=== PATIENT | male | born 1955 | race Hispanic/Latino ===

== ENCOUNTER 2020-08-31 08:04 | Inpatient (IN) | payer MEDICARE, OTHER ==
[~2020-08-31] VITALS: Ht 175.3 cm; Wt 108.9 kg
[~2020-08-31 08:04] MED LIST: AMLODIPINE BESYL5 MG PO; CYMBALTA20 MG PO; GLIMEPIRIDE2 MG PO; METFORMIN HCL500 MG PO
[2020-08-31] MEDS ORDERED: CEFEPIME 1 GM in SODIUM CHLORIDE 0.9% 50ML 50 ML IV ONE (08:30)
[2020-08-31 08:50] LABS: BASOPHILS # (AUTO) 0.1 (0.0-0.1); BASOPHILS % 0.6 % (0.0-1.0); EOSINOPHILS # (AUTO) 0.1 (0.0-0.4); HEMATOCRIT 43.8 % (38.2-49.6); HEMOGLOBIN 14.1 g/dL (14.0-18.0); LYMPHOCYTES # (AUTO) 0.8 (1.0-3.2); LYMPHOCYTES % 5.6 % (18.0-39.1); MEAN CORPUSCULAR HEMOGLOBIN 29.4 pg (28-32); MEAN CORPUSCULAR HGB CONC 32.2 g/dL (31-35); MEAN CORPUSCULAR VOLUME 91.3 fL (81-99); MONOCYTES # (AUTO) 0.9 (0.2-0.8); MONOCYTES % 6.8 % (4.4-11.3); NEUTROPHILS # (AUTO) 11.5 (2.1-6.9); PLATELET COUNT 315 x10e3/uL (140-360); RED CELL DISTRIBUTION WIDTH 14.1 % (11.7-14.4)
[2020-08-31 09:06] LABS: ABG PCO2 38 mmHg (35-45); ABG PH 7.46 (7.35-7.45)
[2020-08-31 09:07] LABS: ABG HCO3 27 mmol/L (22-26); ABG PO2 417 mmHg (80-105); ABG TCO2 28
[2020-08-31 09:16] LABS: ALBUMIN 3.1 g/dL (3.5-5.0); ALBUMIN/GLOBULIN RATIO 0.8 (0.8-2.0); ANION GAP 17.4 mmol/L (8-16); CALCIUM 8.9 mg/dL (8.4-10.2); CREATININE, SERUM 0.95 mg/dL (0.72-1.25); POTASSIUM 4.4 mmol/L (3.5-5.1)
[2020-08-31 09:24] LABS: CREATINE KINASE MB 0.6 ng/mL (0-5.0)
[2020-08-31] MEDS ORDERED: INSULIN REGULAR, HUMAN 100 UNIT/1 ML IV ONE (10:00)
[2020-08-31] MEDS ORDERED: IOPAMIDOL 370 MG/ML 200 ML INFUS..BTL INJ ONE (10:33)
[2020-08-31] MEDS ORDERED: SODIUM CHLORIDE 0.9% 50ML 50 ML ONE (10:33)
[2020-09-01] VITALS (10 sets, daily range): BP systolic 104–128; BP diastolic 66–77
[2020-09-01 06:26] LABS: BASOPHILS # (AUTO) 0.1 (0.0-0.1); BASOPHILS % 0.5 % (0.0-1.0); EOSINOPHILS # (AUTO) 0.3 (0.0-0.4); EOSINOPHILS % 2.8 % (0.0-6.0); HEMATOCRIT 39.3 % (38.2-49.6); HEMOGLOBIN 12.6 g/dL (14.0-18.0); LYMPHOCYTES # (AUTO) 1.3 (1.0-3.2); LYMPHOCYTES % 11.8 % (18.0-39.1); MEAN CORPUSCULAR HEMOGLOBIN 29.6 pg (28-32); MEAN CORPUSCULAR HGB CONC 32.1 g/dL (31-35); MEAN CORPUSCULAR VOLUME 92.3 fL (81-99); MONOCYTES % 8.8 % (4.4-11.3); NEUTROPHILS # (AUTO) 8.3 (2.1-6.9); NEUTROPHILS % 74.8 % (38.7-80.0); PLATELET COUNT 289 x10e3/uL (140-360); RED BLOOD COUNT 4.26 x10e6/uL (4.3-5.7); RED CELL DISTRIBUTION WIDTH 14.1 % (11.7-14.4)
[2020-09-01 07:04] LABS: ALBUMIN 2.5 g/dL (3.5-5.0); ALBUMIN/GLOBULIN RATIO 0.7 (0.8-2.0); CALCIUM 8.4 mg/dL (8.4-10.2); CREATININE, SERUM 0.73 mg/dL (0.72-1.25)
[2020-09-01] MEDS: DULOXETINE HCL 20 MG DELAYED RELEASE PO SCH (08:43)
[2020-09-01] MEDS: AMLODIPINE BESYLATE 5 MG TAB PO SCH (08:43)
[2020-09-01] MEDS: GLIMEPIRIDE 2 MG TAB PO SCH ×2 (08:44→16:00)
[2020-09-01] MEDS: FUROSEMIDE INJ 10 MG/ML 4 ML VIAL IV SCH ×2 (08:45→16:05)
[2020-09-01] MEDS ORDERED: METFORMIN HCL 500 MG TAB PO SCH (09:00)
[2020-09-01] MEDS ORDERED: FUROSEMIDE INJ 10 MG/ML 4 ML VIAL IV SCH (09:00)
[2020-09-01] MEDS ORDERED: DEXTROSE 50% SYRINGE 50 ML IV PRN (11:45)
[2020-09-01] MEDS ORDERED: DOXYCYCLINE HYCLATE TABLET 100 MG TAB PO SCH (11:45)
[2020-09-01] MEDS ORDERED: COVID-19 VACC, MRNA(PFIZER)/PF 30 MCG/0.3 ML VIAL IM ONE (11:45)
[2020-09-01] MEDS: CEFTRIAXONE 1 GM in SODIUM CHLORIDE 0.9% 50ML 50 ML IV SCH (13:12)
[2020-09-01] MEDS ORDERED: SODIUM CHLORIDE 0.9% 250ML 250 ML ONE (13:21)
[2020-09-01] MEDS: ALBUTEROL SULF 0.083% NEB SOLN 3 ML NEB NEB SCH ×2 (13:30→19:20)
[2020-09-01] MEDS ORDERED: COVID-19 VACC, MRNA(MODERNA)/PF 100 MCG/0.5 ML VIAL IM PRN (15:00)
[2020-09-01] MEDS: INSULIN LISPRO 100 UNIT/1 ML 3ML VIAL SQ SCH ×3 (16:05→20:32)
[2020-09-01] MEDS: CLINDAMYCIN PHOS 900MG/ 50ML 50 ML IV SCH ×2 (16:08→20:00)
[2020-09-01] MEDS: HEPARIN SOD (PORCINE) 5,000 UNIT/ML VIAL SC SCH (20:31)
[2020-09-02] VITALS (8 sets, daily range): BP systolic 101–116; BP diastolic 62–74
[2020-09-02] MEDS: CLINDAMYCIN PHOS 900MG/ 50ML 50 ML IV SCH ×4 (01:08→20:00)
[2020-09-02] MEDS: ALBUTEROL SULF 0.083% NEB SOLN 3 ML NEB NEB SCH ×4 (01:25→19:10)
[2020-09-02] MEDS: GLIMEPIRIDE 2 MG TAB PO SCH ×2 (08:04→16:43)
[2020-09-02] MEDS: DULOXETINE HCL 20 MG DELAYED RELEASE PO SCH (08:04)
[2020-09-02] MEDS: METFORMIN HCL 500 MG TAB PO SCH ×2 (08:05→16:43)
[2020-09-02] MEDS: AMLODIPINE BESYLATE 5 MG TAB PO SCH (08:05)
[2020-09-02] MEDS: HEPARIN SOD (PORCINE) 5,000 UNIT/ML VIAL SC SCH ×2 (08:09→20:35)
[2020-09-02] MEDS: FUROSEMIDE INJ 10 MG/ML 4 ML VIAL IV SCH ×2 (08:09→16:47)
[2020-09-02] MEDS: INSULIN LISPRO 100 UNIT/1 ML 3ML VIAL SQ SCH ×5 (08:09→20:51)
[2020-09-02] MEDS: CEFTRIAXONE 1 GM in SODIUM CHLORIDE 0.9% 50ML 50 ML IV SCH (09:55)
[2020-09-03] VITALS (9 sets, daily range): BP systolic 98–117; BP diastolic 51–76
[2020-09-03] MEDS: ALBUTEROL SULF 0.083% NEB SOLN 3 ML NEB NEB SCH ×4 (00:40→20:03)
[2020-09-03] MEDS: CLINDAMYCIN PHOS 900MG/ 50ML 50 ML IV SCH ×4 (01:20→19:35)
[2020-09-03 05:39] LABS: BASOPHILS # (AUTO) 0.1 (0.0-0.1); BASOPHILS % 0.6 % (0.0-1.0); EOSINOPHILS # (AUTO) 0.4 (0.0-0.4); EOSINOPHILS % 4.3 % (0.0-6.0); HEMOGLOBIN 12.7 g/dL (14.0-18.0); LYMPHOCYTES # (AUTO) 1.5 (1.0-3.2); LYMPHOCYTES % 16.5 % (18.0-39.1); MEAN CORPUSCULAR HEMOGLOBIN 29.1 pg (28-32); MEAN CORPUSCULAR HGB CONC 31.8 g/dL (31-35); MEAN CORPUSCULAR VOLUME 91.7 fL (81-99); MONOCYTES % 10.8 % (4.4-11.3); NEUTROPHILS % 66.8 % (38.7-80.0); PLATELET COUNT 329 x10e3/uL (140-360); RED BLOOD COUNT 4.36 x10e6/uL (4.3-5.7); RED CELL DISTRIBUTION WIDTH 13.8 % (11.7-14.4)
[2020-09-03 06:08] LABS: ALBUMIN 2.6 g/dL (3.5-5.0); ALBUMIN/GLOBULIN RATIO 0.7 (0.8-2.0); ANION GAP 14.3 mmol/L (8-16); CALCIUM 8.7 mg/dL (8.4-10.2); CREATININE, SERUM 0.65 mg/dL (0.72-1.25); POTASSIUM 3.3 mmol/L (3.5-5.1)
[2020-09-03] MEDS: INSULIN LISPRO 100 UNIT/1 ML 3ML VIAL SQ SCH ×3 (07:30→16:30)
[2020-09-03] MEDS: METFORMIN HCL 500 MG TAB PO SCH ×2 (08:00→17:13)
[2020-09-03] MEDS: FUROSEMIDE INJ 10 MG/ML 4 ML VIAL IV SCH ×2 (09:00→17:13)
[2020-09-03] MEDS: AMLODIPINE BESYLATE 5 MG TAB PO SCH (09:00)
[2020-09-03] MEDS: GLIMEPIRIDE 2 MG TAB PO SCH ×2 (09:00→17:13)
[2020-09-03] MEDS: CEFTRIAXONE 1 GM in SODIUM CHLORIDE 0.9% 50ML 50 ML IV SCH (09:00)
[2020-09-03] MEDS: HEPARIN SOD (PORCINE) 5,000 UNIT/ML VIAL SC SCH ×2 (09:00→20:52)
[2020-09-03] MEDS: DULOXETINE HCL 20 MG DELAYED RELEASE PO SCH (09:00)
[2020-09-03] MEDS ORDERED: LIDOCAINE VISC 2% SOLN 15 ML UDC ONE (22:49)
[2020-09-04] VITALS (7 sets, daily range): BP systolic 108–121; BP diastolic 64–77
[2020-09-04] MEDS: ALBUTEROL SULF 0.083% NEB SOLN 3 ML NEB NEB SCH ×4 (00:55→19:35)
[2020-09-04] MEDS: CLINDAMYCIN PHOS 900MG/ 50ML 50 ML IV SCH ×4 (01:24→20:00)
[2020-09-04] MEDS: INSULIN LISPRO 100 UNIT/1 ML 3ML VIAL SQ SCH ×4 (08:21→21:00)
[2020-09-04] MEDS: METFORMIN HCL 500 MG TAB PO SCH ×2 (08:21→16:20)
[2020-09-04] MEDS: AMLODIPINE BESYLATE 5 MG TAB PO SCH (08:22)
[2020-09-04] MEDS: FUROSEMIDE INJ 10 MG/ML 4 ML VIAL IV SCH ×2 (08:22→16:19)
[2020-09-04] MEDS: GLIMEPIRIDE 2 MG TAB PO SCH ×2 (08:22→16:20)
[2020-09-04] MEDS: DULOXETINE HCL 20 MG DELAYED RELEASE PO SCH (08:22)
[2020-09-04] MEDS: HEPARIN SOD (PORCINE) 5,000 UNIT/ML VIAL SC SCH ×2 (08:22→20:19)
[2020-09-04] MEDS: CEFTRIAXONE 1 GM in SODIUM CHLORIDE 0.9% 50ML 50 ML IV SCH (08:22)
[2020-09-05] VITALS (8 sets, daily range): BP systolic 97–132; BP diastolic 66–90
[2020-09-05] MEDS: ALBUTEROL SULF 0.083% NEB SOLN 3 ML NEB NEB SCH ×4 (00:05→19:55)
[2020-09-05] MEDS: CLINDAMYCIN PHOS 900MG/ 50ML 50 ML IV SCH ×2 (02:00→08:56)
[2020-09-05] MEDS: METFORMIN HCL 500 MG TAB PO SCH ×2 (08:53→16:35)
[2020-09-05] MEDS: GLIMEPIRIDE 2 MG TAB PO SCH ×2 (08:53→16:35)
[2020-09-05] MEDS: DULOXETINE HCL 20 MG DELAYED RELEASE PO SCH (08:54)
[2020-09-05] MEDS: AMLODIPINE BESYLATE 5 MG TAB PO SCH (08:54)
[2020-09-05] MEDS: HEPARIN SOD (PORCINE) 5,000 UNIT/ML VIAL SC SCH ×2 (08:56→21:28)
[2020-09-05] MEDS: FUROSEMIDE INJ 10 MG/ML 4 ML VIAL IV SCH ×2 (08:56→16:38)
[2020-09-05] MEDS: INSULIN LISPRO 100 UNIT/1 ML 3ML VIAL SQ SCH ×4 (08:56→21:29)
[2020-09-05] MEDS: CEFTRIAXONE 1 GM in SODIUM CHLORIDE 0.9% 50ML 50 ML IV SCH (10:35)
[2020-09-05] MEDS: DOXYCYCLINE HYCLATE TABLET 100 MG TAB PO SCH ×2 (11:51→21:26)
[2020-09-06] VITALS: BP 106/58
[2020-09-06] MEDS: ALBUTEROL SULF 0.083% NEB SOLN 3 ML NEB NEB SCH ×2 (01:05→07:00)
[2020-09-06 04:30] VITALS: BP 116/78
[2020-09-06 04:48] LABS: BASOPHILS # (AUTO) 0.1 (0.0-0.1); BASOPHILS % 0.6 % (0.0-1.0); EOSINOPHILS # (AUTO) 0.5 (0.0-0.4); EOSINOPHILS % 5.7 % (0.0-6.0); HEMOGLOBIN 12.3 g/dL (14.0-18.0); LYMPHOCYTES # (AUTO) 1.6 (1.0-3.2); LYMPHOCYTES % 18.6 % (18.0-39.1); MEAN CORPUSCULAR HEMOGLOBIN 29.6 pg (28-32); MEAN CORPUSCULAR HGB CONC 32.4 g/dL (31-35); MEAN CORPUSCULAR VOLUME 91.3 fL (81-99); MONOCYTES # (AUTO) 0.9 (0.2-0.8); MONOCYTES % 10.6 % (4.4-11.3); NEUTROPHILS # (AUTO) 5.5 (2.1-6.9); NEUTROPHILS % 63.6 % (38.7-80.0); PLATELET COUNT 323 x10e3/uL (140-360); RED BLOOD COUNT 4.16 x10e6/uL (4.3-5.7); RED CELL DISTRIBUTION WIDTH 13.3 % (11.7-14.4)
[2020-09-06 05:14] LABS: ANION GAP 15.1 mmol/L (8-16); CALCIUM 8.5 mg/dL (8.4-10.2); CREATININE, SERUM 0.67 mg/dL (0.72-1.25); POTASSIUM 3.1 mmol/L (3.5-5.1)
[2020-09-06] MEDS ORDERED: POTASSIUM CHLORIDE 20 MEQ TAB CR PO ONE (07:45)
[2020-09-06 08:00] VITALS: BP 136/80
[2020-09-06] MEDS: GLIMEPIRIDE 2 MG TAB PO SCH (08:07)
[2020-09-06] MEDS: METFORMIN HCL 500 MG TAB PO SCH (08:07)
[2020-09-06] MEDS: DULOXETINE HCL 20 MG DELAYED RELEASE PO SCH (08:08)
[2020-09-06] MEDS: DOXYCYCLINE HYCLATE TABLET 100 MG TAB PO SCH (08:08)
[2020-09-06] MEDS: AMLODIPINE BESYLATE 5 MG TAB PO SCH (08:08)
[2020-09-06] MEDS: HEPARIN SOD (PORCINE) 5,000 UNIT/ML VIAL SC SCH (08:11)
[2020-09-06] MEDS: FUROSEMIDE INJ 10 MG/ML 4 ML VIAL IV SCH (08:11)
[2020-09-06] MEDS: CEFTRIAXONE 1 GM in SODIUM CHLORIDE 0.9% 50ML 50 ML IV SCH (08:11)
[2020-09-06] MEDS: INSULIN LISPRO 100 UNIT/1 ML 3ML VIAL SQ SCH (08:11)
[2020-09-06 08:17] VITALS: BP 136/80
[2020-09-06] MEDS ORDERED: VIBRAMYCIN100 MG PO (10:35)
== END 2020-09-06 11:07 | disposition home or self-care (01) | DRG 193 ==
LOC: ER 08:12 → ERHOLD 12:39 → MED/SURG2 09-01 04:28 → OBSVTOIN 09-01 14:19
PROVIDERS: ADMIT Internal Medicine; ATTEND Internal Medicine
DX: J18.9 Pneumonia, unspecified organism (principal); J96.01 Acute respiratory failure with hypoxia; I50.33 Acute on chronic diastolic (congestive) heart failure; I11.0 Hypertensive heart disease with heart failure; Z87.891 Personal history of nicotine dependence; E66.01 Morbid (severe) obesity due to excess calories; Z68.35 Body mass index [BMI] 35.0-35.9, adult; J84.10 Pulmonary fibrosis, unspecified; E11.9 Type 2 diabetes mellitus without complications
CPT/HCPCS: 36415; 36600; 71045; 71046; 71260; 80048; 80053; 82164; 82550; 82553; 82805; 82948; 83605; 83880; 84484; 85025; 87040; 87400; 91300; 91301; 93005; 93306; 94640; 99251; 99285; G0378; J0456; J0696; J1644; J1817; J1940; J7050; Q9967; U0002

== ENCOUNTER → 2020-09-06 | Outpatient (CLI) | payer MEDICARE, OTHER ==
[~2020-09-06] MED LIST changes: +VIBRAMYCIN100 MG PO
== END ==
LOC: VACCPMC 14:24
DX: Z23 Encounter for immunization (principal); Z20.822 Contact with and (suspected) exposure to COVID-19

== ENCOUNTER 2021-04-06 09:06 | Inpatient (IN) | payer MEDICARE, OTHER ==
[~2021-04-06] VITALS: Ht 175.3 cm; Wt 115.7 kg
[2021-04-06] MEDS ORDERED: CEFTRIAXONE 1 GM in SODIUM CHLORIDE 0.9% 50ML 50 ML IV ONE (09:30)
[2021-04-06] MEDS ORDERED: DEXAMETHASONE SOD PHOS 10 MG/1 ML VIAL IV ONE (09:30)
[2021-04-06] MEDS ORDERED: ASPIRIN 81 MG CHEW TAB PO ONE (09:30)
[2021-04-06] MEDS ORDERED: ALBUTEROL/IPRATROPIUM 3 ML NEB NEB ONE (09:30)
[2021-04-06 09:42] LABS: BASOPHILS # (AUTO) 0.1 (0.0-0.1); BASOPHILS % 0.6 % (0.0-1.0); EOSINOPHILS # (AUTO) 0.3 (0.0-0.4); EOSINOPHILS % 1.8 % (0.0-6.0); HEMOGLOBIN 18.5 g/dL (14.0-18.0); LYMPHOCYTES # (AUTO) 1.4 (1.0-3.2); LYMPHOCYTES % 9.5 % (18.0-39.1); MEAN CORPUSCULAR HEMOGLOBIN 26.1 pg (28-32); MEAN CORPUSCULAR HGB CONC 30.8 g/dL (31-35); MEAN CORPUSCULAR VOLUME 84.7 fL (81-99); MONOCYTES # (AUTO) 1.5 (0.2-0.8); MONOCYTES % 10.3 % (4.4-11.3); NEUTROPHILS # (AUTO) 11.2 (2.1-6.9); NEUTROPHILS % 76.8 % (38.7-80.0); PLATELET COUNT 245 x10e3/uL (140-360); RED CELL DISTRIBUTION WIDTH 17.8 % (11.7-14.4)
[2021-04-06 09:57] LABS: INR 1.05; PROTHROMBIN TIME 14.4 seconds (11.9-14.5); RED BLOOD COUNT 7.08 x10e6/uL (4.3-5.7)
[2021-04-06 10:25] LABS: ALBUMIN 3.2 g/dL (3.5-5.0); ALBUMIN/GLOBULIN RATIO 0.7 (0.8-2.0); ANION GAP 18.8 mmol/L (8-16); CALCIUM 9.2 mg/dL (8.4-10.2); CREATININE, SERUM 0.96 mg/dL (0.72-1.25)
[2021-04-06 10:28] LABS: POTASSIUM 4.8 mmol/L (3.5-5.1)
[2021-04-06] MEDS ORDERED: SODIUM CHLORIDE 0.9% 500ML 500 ML IV ONE (11:00)
[2021-04-06] MEDS ORDERED: AZITHROMYCIN 250 MG TAB PO ONE (11:00)
[2021-04-06] MEDS: FUROSEMIDE INJ 10 MG/ML 4 ML VIAL IV SCH ×2 (11:13→20:42)
[2021-04-06] MEDS ORDERED: ONDANSETRON HCL INJ 2MG/ML 2ML 2 MG/ML VIAL IV PRN (12:15)
[2021-04-06] MEDS ORDERED: ACETAMINOPHEN 325 MG TAB PO PRN (12:15)
[2021-04-06 20:00] VITALS: BP 117/87
[2021-04-06 20:18] VITALS: BP 124/77
[2021-04-06] MEDS ORDERED: DEXTROSE 50% SYRINGE 50 ML IV PRN (22:15)
[2021-04-07] VITALS (7 sets, daily range): BP systolic 124–139; BP diastolic 79–87
[2021-04-07] MEDS ORDERED: ALBUTEROL/IPRATROPIUM 3 ML NEB NEB PRN (03:30)
[2021-04-07 06:02] LABS: BASOPHILS # (AUTO) 0.1 (0.0-0.1); BASOPHILS % 0.4 % (0.0-1.0); EOSINOPHILS % 0.2 % (0.0-6.0); HEMATOCRIT 55.1 % (38.2-49.6); HEMOGLOBIN 17.4 g/dL (14.0-18.0); LYMPHOCYTES # (AUTO) 1.6 (1.0-3.2); LYMPHOCYTES % 11.3 % (18.0-39.1); MEAN CORPUSCULAR HEMOGLOBIN 25.5 pg (28-32); MEAN CORPUSCULAR HGB CONC 31.6 g/dL (31-35); MEAN CORPUSCULAR VOLUME 80.7 fL (81-99); MONOCYTES # (AUTO) 1.5 (0.2-0.8); MONOCYTES % 10.6 % (4.4-11.3); NEUTROPHILS # (AUTO) 10.8 (2.1-6.9); NEUTROPHILS % 76.6 % (38.7-80.0); PLATELET COUNT 277 x10e3/uL (140-360); RED BLOOD COUNT 6.83 x10e6/uL (4.3-5.7); RED CELL DISTRIBUTION WIDTH 16.7 % (11.7-14.4)
[2021-04-07 06:16] LABS: ANION GAP 14.8 mmol/L (8-16); CALCIUM 8.6 mg/dL (8.4-10.2); CREATININE, SERUM 0.79 mg/dL (0.72-1.25); POTASSIUM 3.8 mmol/L (3.5-5.1)
[2021-04-07] MEDS: INSULIN LISPRO 100 UNIT/1 ML 3ML VIAL SQ SCH ×4 (07:30→20:17)
[2021-04-07] MEDS: METHYLPREDNISOLONE SOD SUCC 40 MG/ML VIAL 1ML IV SCH ×2 (09:15→19:55)
[2021-04-07] MEDS: FUROSEMIDE INJ 10 MG/ML 4 ML VIAL IV SCH ×2 (09:15→19:55)
[2021-04-07] MEDS: AMLODIPINE BESYLATE 5 MG TAB PO SCH (09:15)
[2021-04-07] MEDS: METFORMIN HCL 500 MG TAB PO SCH ×2 (09:15→17:00)
[2021-04-07] MEDS: DULOXETINE HCL 20 MG DELAYED RELEASE PO SCH (09:15)
[2021-04-07] MEDS: AZITHROMYCIN 250 MG TAB PO SCH (09:15)
[2021-04-07] MEDS: GLIMEPIRIDE 2 MG TAB PO SCH ×2 (09:15→17:00)
[2021-04-07] MEDS: CEFTRIAXONE 1 GM in SODIUM CHLORIDE 0.9% 50ML 50 ML IV SCH (09:15)
[2021-04-07] MEDS ORDERED: SODIUM CHLORIDE 0.9% 250ML 250 ML ONE (09:19)
[2021-04-07] MEDS: ZOLPIDEM TARTRATE 10 MG TAB PO PRN (20:10)
[2021-04-08] VITALS (7 sets, daily range): BP systolic 122–149; BP diastolic 75–97
[2021-04-08] MEDS: INSULIN LISPRO 100 UNIT/1 ML 3ML VIAL SQ SCH ×4 (08:00→21:52)
[2021-04-08] MEDS: FUROSEMIDE INJ 10 MG/ML 4 ML VIAL IV SCH ×2 (09:12→21:48)
[2021-04-08] MEDS: CEFTRIAXONE 1 GM in SODIUM CHLORIDE 0.9% 50ML 50 ML IV SCH (09:13)
[2021-04-08] MEDS: METHYLPREDNISOLONE SOD SUCC 40 MG/ML VIAL 1ML IV SCH ×2 (09:14→21:48)
[2021-04-08] MEDS: METFORMIN HCL 500 MG TAB PO SCH ×2 (09:15→16:22)
[2021-04-08] MEDS: GLIMEPIRIDE 2 MG TAB PO SCH ×2 (09:15→16:22)
[2021-04-08] MEDS: AZITHROMYCIN 250 MG TAB PO SCH (09:15)
[2021-04-08] MEDS: AMLODIPINE BESYLATE 5 MG TAB PO SCH (09:15)
[2021-04-08] MEDS: DULOXETINE HCL 20 MG DELAYED RELEASE PO SCH (09:15)
[2021-04-09] VITALS (8 sets, daily range): BP systolic 122–142; BP diastolic 80–90
[2021-04-09] MEDS: ZOLPIDEM TARTRATE 10 MG TAB PO PRN (00:31)
[2021-04-09 08:28] LABS: BASOPHILS % 0.2 % (0.0-1.0); HEMATOCRIT 59.5 % (38.2-49.6); HEMOGLOBIN 18.7 g/dL (14.0-18.0); MEAN CORPUSCULAR HEMOGLOBIN 25.8 pg (28-32); MEAN CORPUSCULAR HGB CONC 31.4 g/dL (31-35); MONOCYTES # (AUTO) 1.1 (0.2-0.8); MONOCYTES % 7.3 % (4.4-11.3); NEUTROPHILS # (AUTO) 12.5 (2.1-6.9); PLATELET COUNT 326 x10e3/uL (140-360); RED CELL DISTRIBUTION WIDTH 17.6 % (11.7-14.4)
[2021-04-09 08:35] LABS: RED BLOOD COUNT 7.26 x10e6/uL (4.3-5.7)
[2021-04-09 08:52] LABS: ALBUMIN 3.3 g/dL (3.5-5.0); ALBUMIN/GLOBULIN RATIO 0.8 (0.8-2.0); CALCIUM 9.4 mg/dL (8.4-10.2); CREATININE, SERUM 0.99 mg/dL (0.72-1.25); MAGNESIUM 2.1 MG/DL (1.3-2.1)
[2021-04-09] MEDS: FUROSEMIDE INJ 10 MG/ML 4 ML VIAL IV SCH ×2 (08:57→20:34)
[2021-04-09] MEDS: INSULIN LISPRO 100 UNIT/1 ML 3ML VIAL SQ SCH ×4 (08:57→21:02)
[2021-04-09] MEDS: GLIMEPIRIDE 2 MG TAB PO SCH ×2 (08:58→17:25)
[2021-04-09] MEDS: CEFTRIAXONE 1 GM in SODIUM CHLORIDE 0.9% 50ML 50 ML IV SCH (08:58)
[2021-04-09] MEDS: METHYLPREDNISOLONE SOD SUCC 40 MG/ML VIAL 1ML IV SCH ×2 (08:58→20:34)
[2021-04-09] MEDS: DULOXETINE HCL 20 MG DELAYED RELEASE PO SCH (08:59)
[2021-04-09] MEDS: METFORMIN HCL 500 MG TAB PO SCH ×2 (09:00→17:25)
[2021-04-09] MEDS: AMLODIPINE BESYLATE 5 MG TAB PO SCH (09:01)
[2021-04-09] MEDS: AZITHROMYCIN 250 MG TAB PO SCH (09:01)
[2021-04-10] VITALS (8 sets, daily range): BP systolic 120–145; BP diastolic 73–92
[2021-04-10] MEDS: AZITHROMYCIN 250 MG TAB PO SCH (08:22)
[2021-04-10] MEDS: METHYLPREDNISOLONE SOD SUCC 40 MG/ML VIAL 1ML IV SCH ×2 (08:22→21:36)
[2021-04-10] MEDS: METFORMIN HCL 500 MG TAB PO SCH ×2 (08:22→16:36)
[2021-04-10] MEDS: AMLODIPINE BESYLATE 5 MG TAB PO SCH (08:22)
[2021-04-10] MEDS: GLIMEPIRIDE 2 MG TAB PO SCH ×2 (08:22→16:36)
[2021-04-10] MEDS: DULOXETINE HCL 20 MG DELAYED RELEASE PO SCH (08:22)
[2021-04-10] MEDS: FUROSEMIDE INJ 10 MG/ML 4 ML VIAL IV SCH ×2 (08:22→21:36)
[2021-04-10] MEDS: CEFTRIAXONE 1 GM in SODIUM CHLORIDE 0.9% 50ML 50 ML IV SCH (08:22)
[2021-04-10] MEDS: INSULIN LISPRO 100 UNIT/1 ML 3ML VIAL SQ SCH ×4 (08:51→21:37)
[2021-04-11] VITALS: BP 135/91
[2021-04-11 04:00] VITALS: BP 141/80
[2021-04-11 07:43] VITALS: BP 141/80
[2021-04-11 08:06] VITALS: BP 151/90
[2021-04-11] MEDS: METFORMIN HCL 500 MG TAB PO SCH (09:48)
[2021-04-11] MEDS: FUROSEMIDE INJ 10 MG/ML 4 ML VIAL IV SCH (09:48)
[2021-04-11] MEDS: METHYLPREDNISOLONE SOD SUCC 40 MG/ML VIAL 1ML IV SCH (09:48)
[2021-04-11] MEDS: GLIMEPIRIDE 2 MG TAB PO SCH (09:48)
[2021-04-11] MEDS: CEFTRIAXONE 1 GM in SODIUM CHLORIDE 0.9% 50ML 50 ML IV SCH (09:48)
[2021-04-11] MEDS: DULOXETINE HCL 20 MG DELAYED RELEASE PO SCH (09:48)
[2021-04-11] MEDS: AMLODIPINE BESYLATE 5 MG TAB PO SCH (09:49)
[2021-04-11] MEDS: AZITHROMYCIN 250 MG TAB PO SCH (09:49)
[2021-04-11] MEDS: INSULIN LISPRO 100 UNIT/1 ML 3ML VIAL SQ SCH (09:49)
== END 2021-04-11 10:10 | disposition home or self-care (01) | DRG 193 ==
LOC: ER 09:09 → ERHOLD 09:19 → MED/SURG3 20:18
PROVIDERS: ADMIT Internal Medicine; ATTEND Internal Medicine
DX: J18.9 Pneumonia, unspecified organism (principal); I50.33 Acute on chronic diastolic (congestive) heart failure; J96.21 Acute and chronic respiratory failure with hypoxia; E87.1 Hypo-osmolality and hyponatremia; E11.65 Type 2 diabetes mellitus with hyperglycemia; J84.10 Pulmonary fibrosis, unspecified; I11.0 Hypertensive heart disease with heart failure; E66.01 Morbid (severe) obesity due to excess calories; Z68.37 Body mass index [BMI] 37.0-37.9, adult; D75.1 Secondary polycythemia; Z79.84 Long term (current) use of oral hypoglycemic drugs
CPT/HCPCS: 36415; 71045; 80048; 80053; 82948; 83605; 83735; 83880; 84484; 85025; 85379; 85610; 85730; 87040; 93005; 93306; 94640; 94799; 96372; 99284; J0696; J1100; J1940; J2920; J7040; J7050; U0002

== ENCOUNTER 2021-10-20 13:58 | Inpatient (IN) | payer MEDICARE, OTHER ==
[~2021-10-20] VITALS: Ht 172.7 cm; Wt 112.5 kg
[2021-10-20 15:07] LABS: BASOPHILS % 0.4 % (0.0-1.0); EOSINOPHILS # (AUTO) 0.4 (0.0-0.4); EOSINOPHILS % 3.1 % (0.0-6.0); HEMATOCRIT 59.5 % (38.2-49.6); HEMOGLOBIN 18.2 g/dL (14.0-18.0); LYMPHOCYTES # (AUTO) 1.1 (1.0-3.2); LYMPHOCYTES % 9.4 % (18.0-39.1); MEAN CORPUSCULAR HEMOGLOBIN 25.5 pg (28-32); MEAN CORPUSCULAR HGB CONC 30.6 g/dL (31-35); MEAN CORPUSCULAR VOLUME 83.3 fL (81-99); MONOCYTES # (AUTO) 1.1 (0.2-0.8); MONOCYTES % 9.4 % (4.4-11.3); NEUTROPHILS # (AUTO) 8.7 (2.1-6.9); PLATELET COUNT 234 x10e3/uL (140-360); RED CELL DISTRIBUTION WIDTH 20.6 % (11.7-14.4)
[2021-10-20 15:10] LABS: RED BLOOD COUNT 7.14 x10e6/uL (4.3-5.7)
[2021-10-20 15:29] LABS: ALBUMIN 3.3 g/dL (3.5-5.0); ALBUMIN/GLOBULIN RATIO 0.9 (0.8-2.0); ANION GAP 14.4 mmol/L (8-16); CALCIUM 9.4 mg/dL (8.4-10.2); CREATININE, SERUM 0.82 mg/dL (0.72-1.25); POTASSIUM 4.4 mmol/L (3.5-5.1)
[2021-10-20] MEDS ORDERED: METHYLPREDNISOLONE SOD SUCC 125 MG/2ML VIAL IV ONE (17:00)
[2021-10-20] MEDS ORDERED: ONDANSETRON HCL INJ 2MG/ML 2ML 2 MG/ML VIAL IV PRN (17:15)
[2021-10-20] MEDS ORDERED: SODIUM CHLORIDE FLUSH 10 ML SYR INJ PRN (17:15)
[2021-10-20] MEDS ORDERED: DEXTROSE 50% SYRINGE 50 ML IV PRN (17:15)
[2021-10-20] MEDS: ALBUTEROL/IPRATROPIUM 3 ML NEB NEB SCH (18:45)
[2021-10-20 19:28] VITALS: BP 141/84
[2021-10-20] MEDS: METHYLPREDNISOLONE SOD SUCC 40 MG/ML VIAL 1ML IV SCH (20:08)
[2021-10-20] MEDS ORDERED: INSULIN REGULAR, HUMAN 100 UNIT/1 ML SQ SCH (21:00)
[2021-10-20 21:43] VITALS: BP 140/76
[2021-10-20 21:45] VITALS: BP 140/76
[2021-10-20] MEDS ORDERED: FUROSEMIDE INJ 10 MG/ML 2 ML VIAL IV ONE (22:30)
[2021-10-20] MEDS: INSULIN GLARGINE 100 UNITS/ML VIAL SQ SCH (23:28)
[2021-10-21] VITALS (8 sets, daily range): BP systolic 118–142; BP diastolic 61–85
[2021-10-21] MEDS: ALBUTEROL/IPRATROPIUM 3 ML NEB NEB SCH ×5 (00:05→19:30)
[2021-10-21 03:25] LABS: CREATINE KINASE 17 IU/L (30-200)
[2021-10-21] MEDS: METHYLPREDNISOLONE SOD SUCC 40 MG/ML VIAL 1ML IV SCH ×3 (05:18→21:57)
[2021-10-21] MEDS: INSULIN REGULAR, HUMAN 100 UNIT/1 ML SQ SCH ×4 (07:30→21:53)
[2021-10-21 07:44] LABS: BASOPHILS % 0.2 % (0.0-1.0); HEMATOCRIT 58.5 % (38.2-49.6); HEMOGLOBIN 18.2 g/dL (14.0-18.0); LYMPHOCYTES # (AUTO) 0.5 (1.0-3.2); LYMPHOCYTES % 4.9 % (18.0-39.1); MEAN CORPUSCULAR HEMOGLOBIN 25.6 pg (28-32); MEAN CORPUSCULAR HGB CONC 31.1 g/dL (31-35); MEAN CORPUSCULAR VOLUME 82.4 fL (81-99); MONOCYTES # (AUTO) 0.4 (0.2-0.8); MONOCYTES % 4.2 % (4.4-11.3); NEUTROPHILS # (AUTO) 8.8 (2.1-6.9); NEUTROPHILS % 90.2 % (38.7-80.0); PLATELET COUNT 242 x10e3/uL (140-360); RED CELL DISTRIBUTION WIDTH 20.2 % (11.7-14.4)
[2021-10-21 08:13] LABS: ANION GAP 16.2 mmol/L (8-16); CREATININE, SERUM 0.79 mg/dL (0.72-1.25); POTASSIUM 4.2 mmol/L (3.5-5.1)
[2021-10-21] MEDS: AMLODIPINE BESYLATE 5 MG TAB PO SCH (09:00)
[2021-10-21] MEDS: DULOXETINE HCL 30 MG DELAYED RELEASE PO SCH (09:00)
[2021-10-21] MEDS: METFORMIN HCL 500 MG TAB PO SCH ×2 (10:00→16:33)
[2021-10-21] MEDS: INSULIN GLARGINE 100 UNITS/ML VIAL SQ SCH (21:54)
[2021-10-22] VITALS (8 sets, daily range): BP systolic 124–160; BP diastolic 75–88
[2021-10-22] MEDS: ALBUTEROL/IPRATROPIUM 3 ML NEB NEB SCH ×4 (03:15→19:25)
[2021-10-22] MEDS: METHYLPREDNISOLONE SOD SUCC 40 MG/ML VIAL 1ML IV SCH ×3 (05:27→21:00)
[2021-10-22] MEDS ORDERED: NEURONTIN100 MG PO (06:27)
[2021-10-22] MEDS ORDERED: OZEMPIC0.25 MG/0. SC (06:27)
[2021-10-22] MEDS ORDERED: ALBUTEROL0.63 MG/3 NEB (06:27)
[2021-10-22] MEDS ORDERED: VITAMIN B-121000 MCG PO (06:27)
[2021-10-22] MEDS: AMLODIPINE BESYLATE 5 MG TAB PO SCH (08:45)
[2021-10-22] MEDS: METFORMIN HCL 500 MG TAB PO SCH ×2 (08:45→17:06)
[2021-10-22] MEDS: DULOXETINE HCL 30 MG DELAYED RELEASE PO SCH (08:45)
[2021-10-22] MEDS: INSULIN REGULAR, HUMAN 100 UNIT/1 ML SQ SCH ×4 (08:56→22:48)
[2021-10-22] MEDS: MELATONIN 3 MG TAB PO SCH (21:00)
[2021-10-22] MEDS: AZITHROMYCIN 250 MG TAB PO SCH (21:00)
[2021-10-22] MEDS: INSULIN GLARGINE 100 UNITS/ML VIAL SQ SCH (22:49)
[2021-10-23] VITALS (8 sets, daily range): BP systolic 118–142; BP diastolic 73–93
[2021-10-23] MEDS: ALBUTEROL/IPRATROPIUM 3 ML NEB NEB SCH ×4 (00:55→19:25)
[2021-10-23] MEDS: METHYLPREDNISOLONE SOD SUCC 40 MG/ML VIAL 1ML IV SCH ×2 (05:09→16:51)
[2021-10-23] MEDS: DULOXETINE HCL 30 MG DELAYED RELEASE PO SCH (09:00)
[2021-10-23] MEDS: AMLODIPINE BESYLATE 5 MG TAB PO SCH (09:01)
[2021-10-23] MEDS: METFORMIN HCL 500 MG TAB PO SCH ×2 (09:01→16:51)
[2021-10-23] MEDS: INSULIN REGULAR, HUMAN 100 UNIT/1 ML SQ SCH ×4 (09:08→20:35)
[2021-10-23] MEDS ORDERED: SODIUM CHLORIDE 0.9% 250ML 250 ML ONE (09:22)
[2021-10-23] MEDS ORDERED: ONDANSETRON HCL 4 MG ORAL DISINTEGRATING TAB PO PRN (10:45)
[2021-10-23] MEDS: AZITHROMYCIN 250 MG TAB PO SCH (20:34)
[2021-10-23] MEDS: MELATONIN 3 MG TAB PO SCH (20:35)
[2021-10-23] MEDS: INSULIN GLARGINE 100 UNITS/ML VIAL SQ SCH (20:37)
[2021-10-24] VITALS (7 sets, daily range): BP systolic 118–154; BP diastolic 67–90
[2021-10-24] MEDS: ALBUTEROL/IPRATROPIUM 3 ML NEB NEB SCH ×4 (00:15→19:40)
[2021-10-24] MEDS: INSULIN REGULAR, HUMAN 100 UNIT/1 ML SQ SCH ×4 (07:30→20:46)
[2021-10-24] MEDS: METHYLPREDNISOLONE SOD SUCC 40 MG/ML VIAL 1ML IV SCH (08:38)
[2021-10-24] MEDS: AMLODIPINE BESYLATE 5 MG TAB PO SCH (08:39)
[2021-10-24] MEDS: METFORMIN HCL 500 MG TAB PO SCH ×2 (08:39→16:11)
[2021-10-24] MEDS: PANTOPRAZOLE SOD 40 MG TABEC PO SCH (08:39)
[2021-10-24] MEDS: DULOXETINE HCL 30 MG DELAYED RELEASE PO SCH (08:39)
[2021-10-24] MEDS: PREDNISONE 20 MG TAB PO SCH (16:11)
[2021-10-24] MEDS: AZITHROMYCIN 250 MG TAB PO SCH (20:44)
[2021-10-24] MEDS: MELATONIN 3 MG TAB PO SCH (20:44)
[2021-10-24] MEDS: INSULIN GLARGINE 100 UNITS/ML VIAL SQ SCH (20:46)
[2021-10-25] VITALS (8 sets, daily range): BP systolic 120–151; BP diastolic 71–89
[2021-10-25] MEDS: ALBUTEROL/IPRATROPIUM 3 ML NEB NEB SCH ×4 (01:05→18:45)
[2021-10-25] MEDS: INSULIN REGULAR, HUMAN 100 UNIT/1 ML SQ SCH ×4 (08:15→20:42)
[2021-10-25] MEDS: METFORMIN HCL 500 MG TAB PO SCH ×2 (08:25→16:46)
[2021-10-25] MEDS: DULOXETINE HCL 30 MG DELAYED RELEASE PO SCH (08:25)
[2021-10-25] MEDS: PREDNISONE 20 MG TAB PO SCH ×2 (08:25→16:45)
[2021-10-25] MEDS: PANTOPRAZOLE SOD 40 MG TABEC PO SCH (08:26)
[2021-10-25] MEDS: AMLODIPINE BESYLATE 5 MG TAB PO SCH (08:26)
[2021-10-25] MEDS: MELATONIN 3 MG TAB PO SCH (20:28)
[2021-10-25] MEDS: AZITHROMYCIN 250 MG TAB PO SCH (20:28)
[2021-10-25] MEDS: INSULIN GLARGINE 100 UNITS/ML VIAL SQ SCH (20:41)
[2021-10-26] MEDS: ALBUTEROL/IPRATROPIUM 3 ML NEB NEB SCH ×2 (01:00→06:28)
[2021-10-26] MEDS: INSULIN REGULAR, HUMAN 100 UNIT/1 ML SQ SCH (07:23)
[2021-10-26 07:39] VITALS: BP 145/82
[2021-10-26] MEDS ORDERED: KEFLEX125 MG/5 M PO (07:44)
[2021-10-26] MEDS ORDERED: PREDNISONE10 MG PO (07:45)
[2021-10-26 07:57] VITALS: BP 145/82
[2021-10-26] MEDS: AMLODIPINE BESYLATE 5 MG TAB PO SCH (09:05)
[2021-10-26] MEDS: PANTOPRAZOLE SOD 40 MG TABEC PO SCH (09:06)
[2021-10-26] MEDS: DULOXETINE HCL 30 MG DELAYED RELEASE PO SCH (09:06)
[2021-10-26] MEDS: METFORMIN HCL 500 MG TAB PO SCH (09:06)
[2021-10-26] MEDS: PREDNISONE 20 MG TAB PO SCH (09:06)
== END 2021-10-26 11:15 | disposition home or self-care (01) | DRG 196 ==
LOC: ER 14:04 → ERHOLD 17:10 → MED/SURG3 21:18
PROVIDERS: ADMIT Internal Medicine; ATTEND Internal Medicine
PROC: 5A0935A Assistance with Respiratory Ventilation, Less than 24 Consecutive Hours, High Flow/Velocity Cannula (ICD-10-PCS; principal; 2021-10-20)
DX: J84.112 Idiopathic pulmonary fibrosis (principal); I50.33 Acute on chronic diastolic (congestive) heart failure; J96.21 Acute and chronic respiratory failure with hypoxia; J84.10 Pulmonary fibrosis, unspecified; R91.8 Other nonspecific abnormal finding of lung field; Z76.82 Awaiting organ transplant status; Z20.822 Contact with and (suspected) exposure to COVID-19; I11.0 Hypertensive heart disease with heart failure; E78.5 Hyperlipidemia, unspecified; E11.69 Type 2 diabetes mellitus with other specified complication; E66.9 Obesity, unspecified; Z68.37 Body mass index [BMI] 37.0-37.9, adult; J45.909 Unspecified asthma, uncomplicated; F41.9 Anxiety disorder, unspecified; K21.9 Gastro-esophageal reflux disease without esophagitis; E66.01 Morbid (severe) obesity due to excess calories
CPT/HCPCS: 0223U; 36415; 71045; 71250; 80048; 80053; 82550; 82553; 82948; 83880; 84484; 85025; 85379; 93005; 93306; 94640; 94799; 99284; J0456; J0692; J1815; J1817; J1940; J2920; J2930; J7050; J7512

== ENCOUNTER 2022-02-22 16:01 | Observation (INO) | payer MEDICARE, OTHER ==
[~2022-02-22] VITALS: Ht 172.7 cm; Wt 112.5 kg
[~2022-02-22 16:01] MED LIST changes: +ALBUTEROL0.63 MG/3 NEB; +KEFLEX125 MG/5 M PO; +NEURONTIN100 MG PO; +OZEMPIC0.25 MG/0. SC; +PREDNISONE10 MG PO; +VITAMIN B-121000 MCG PO
[2022-02-22 17:02] LABS: BASOPHILS # (AUTO) 0.1 (0.0-0.1); BASOPHILS % 0.5 % (0.0-1.0); EOSINOPHILS # (AUTO) 0.3 (0.0-0.4); EOSINOPHILS % 2.6 % (0.0-6.0); HEMATOCRIT 56.4 % (38.2-49.6); HEMOGLOBIN 17.4 g/dL (14.0-18.0); LYMPHOCYTES # (AUTO) 1.3 (1.0-3.2); LYMPHOCYTES % 10.7 % (18.0-39.1); MEAN CORPUSCULAR HEMOGLOBIN 29.6 pg (28-32); MEAN CORPUSCULAR HGB CONC 30.9 g/dL (31-35); MEAN CORPUSCULAR VOLUME 95.9 fL (81-99); MONOCYTES # (AUTO) 1.1 (0.2-0.8); MONOCYTES % 9.4 % (4.4-11.3); NEUTROPHILS % 75.9 % (38.7-80.0); PLATELET COUNT 212 x10e3/uL (140-360); RED BLOOD COUNT 5.88 x10e6/uL (4.3-5.7); RED CELL DISTRIBUTION WIDTH 14.7 % (11.7-14.4)
[2022-02-22 17:12] LABS: PROTHROMBIN TIME 13.4 seconds (11.9-14.5)
[2022-02-22 17:19] LABS: ALANINE AMINOTRANSFERASE 20 IU/L (0-55); ALBUMIN 4.1 g/dL (3.5-5.0); ALKALINE PHOSPHATASE 118 IU/L (40-150); ANION GAP 19.4 mmol/L (8-16); BLOOD UREA NITROGEN 13 mg/dL (7-26); BUN/CREATININE RATIO 15 (6-25); CALCIUM 9.5 mg/dL (8.4-10.2); CARBON DIOXIDE 24 mmol/L (22-29); CHLORIDE 95 mmol/L (98-107); CREATINE KINASE 21 IU/L (30-200); CREATININE, SERUM 0.84 mg/dL (0.72-1.25); GLUCOSE 371 mg/dL (74-118); POTASSIUM 4.4 mmol/L (3.5-5.1); SODIUM 134 mmol/L (136-145)
[2022-02-22 17:41] LABS: CLARITY,URINE CLEAR (CLEAR); COLOR,URINE YELLOW (YELLOW)
[2022-02-22 17:42] LABS: KETONES,URINE 2+ (NEGATIVE); LEUKOCYTE ESTERASE ,URINE NEGATIVE (NEGATIVE); NITRITE,URINE NEGATIVE (NEGATIVE); PROTEIN,URINE DIPSTICK 1+ (NEGATIVE); URINE UROBILINOGEN 0.2 mg/dL (0.2 - 1)
[2022-02-22 17:44] LABS: RBC,URINE 0-5 /HPF (0-5); WBC,URINE (MAN) 0-5 /HPF (0-5)
[2022-02-22 17:45] LABS: BACTERIA,URINE FEW /HPF; EPITHELIAL CELLS,URINE RARE /LPF
[2022-02-22] MEDS ORDERED: SODIUM CHLORIDE 0.9% 100 ML ONE ×2 (17:47→17:48)
[2022-02-22] MEDS ORDERED: IOPAMIDOL 370 MG/ML 100 ML INFUS..BTL INJ ONE (17:48)
[2022-02-22] MEDS ORDERED: SODIUM CHLORIDE 0.9% 500ML 500 ML IV ONE (18:15)
[2022-02-22] MEDS ORDERED: ALBUTEROL/IPRATROPIUM 3 ML NEB NEB PRN (18:30)
[2022-02-22] MEDS ORDERED: DEXTROSE 50% SYRINGE 50 ML IV PRN (18:30)
[2022-02-22] MEDS ORDERED: ONDANSETRON HCL INJ 2MG/ML 2ML 2 MG/ML VIAL IV PRN (18:30)
[2022-02-22] MEDS: FAMOTIDINE 20 MG/2 ML VIAL IV SCH (18:38)
[2022-02-22] MEDS: SODIUM CHLORIDE 0.9% 1000ML 1,000 ML IV SCH (18:39)
[2022-02-22 21:00] VITALS: BP 134/86
[2022-02-22 21:30] VITALS: BP 134/86
[2022-02-22] MEDS: INSULIN LISPRO 100 UNIT/1 ML 3ML VIAL SQ SCH (21:48)
[2022-02-23] VITALS (8 sets, daily range): BP systolic 104–142; BP diastolic 72–87
[2022-02-23] MEDS: SODIUM CHLORIDE 0.9% 1000ML 1,000 ML IV SCH ×2 (04:37→14:30)
[2022-02-23 05:00] LABS: BASOPHILS # (AUTO) 0.1 (0.0-0.1); BASOPHILS % 0.5 % (0.0-1.0); EOSINOPHILS # (AUTO) 0.2 (0.0-0.4); EOSINOPHILS % 2.1 % (0.0-6.0); HEMATOCRIT 46.9 % (38.2-49.6); HEMOGLOBIN 14.7 g/dL (14.0-18.0); LYMPHOCYTES % 16.9 % (18.0-39.1); MEAN CORPUSCULAR HEMOGLOBIN 29.7 pg (28-32); MEAN CORPUSCULAR HGB CONC 31.3 g/dL (31-35); MEAN CORPUSCULAR VOLUME 94.7 fL (81-99); MONOCYTES # (AUTO) 1.3 (0.2-0.8); MONOCYTES % 11.1 % (4.4-11.3); NEUTROPHILS % 68.5 % (38.7-80.0); PLATELET COUNT 223 x10e3/uL (140-360); RED BLOOD COUNT 4.95 x10e6/uL (4.3-5.7); RED CELL DISTRIBUTION WIDTH 14.3 % (11.7-14.4)
[2022-02-23 05:23] LABS: ALBUMIN 3.2 g/dL (3.5-5.0); ANION GAP 14.8 mmol/L (8-16); CALCIUM 8.4 mg/dL (8.4-10.2); CHOL/HDL RATIO 5.2 (3.9-4.7); CREATININE, SERUM 0.73 mg/dL (0.72-1.25); POTASSIUM 3.8 mmol/L (3.5-5.1)
[2022-02-23] MEDS: FAMOTIDINE 20 MG/2 ML VIAL IV SCH ×2 (05:50→17:22)
[2022-02-23] MEDS ORDERED: ACETAMINOPHEN 325 MG TAB PO PRN (06:00)
[2022-02-23 06:03] LABS: CREATINE KINASE MB 0.8 ng/mL (0-5.0)
[2022-02-23] MEDS: INSULIN LISPRO 100 UNIT/1 ML 3ML VIAL SQ SCH ×4 (07:30→21:46)
[2022-02-23] MEDS ORDERED: GLIMEPIRIDE 2 MG TAB PO SCH (09:00)
[2022-02-23] MEDS: AMLODIPINE BESYLATE 5 MG TAB PO SCH (09:15)
[2022-02-23 12:59] LABS: CREATINE KINASE MB 1.4 ng/mL (0-5.0)
[2022-02-23] MEDS: GLIMEPIRIDE 2 MG TAB PO SCH (17:21)
[2022-02-23] MEDS ORDERED: IOPAMIDOL 370 MG/ML 100 ML INFUS..BTL INJ ONE (18:00)
[2022-02-23 20:08] LABS: CREATINE KINASE MB 1.3 ng/mL (0-5.0)
[2022-02-24] VITALS (9 sets, daily range): BP systolic 99–141; BP diastolic 56–81
[2022-02-24] MEDS: SODIUM CHLORIDE 0.9% 1000ML 1,000 ML IV SCH ×3 (00:15→20:50)
[2022-02-24] MEDS: FAMOTIDINE 20 MG/2 ML VIAL IV SCH ×2 (05:39→17:05)
[2022-02-24] MEDS: INSULIN LISPRO 100 UNIT/1 ML 3ML VIAL SQ SCH ×4 (07:30→20:50)
[2022-02-24] MEDS: AMLODIPINE BESYLATE 5 MG TAB PO SCH (08:32)
[2022-02-24] MEDS: GLIMEPIRIDE 2 MG TAB PO SCH ×2 (08:32→17:04)
[2022-02-25 05:00] VITALS: BP 123/76
[2022-02-25] MEDS: FAMOTIDINE 20 MG/2 ML VIAL IV SCH (05:32)
[2022-02-25] MEDS: SODIUM CHLORIDE 0.9% 1000ML 1,000 ML IV SCH (05:33)
[2022-02-25 07:10] VITALS: BP 123/76
[2022-02-25 07:41] VITALS: BP 128/77
[2022-02-25] MEDS: INSULIN LISPRO 100 UNIT/1 ML 3ML VIAL SQ SCH (08:06)
[2022-02-25 08:22] LABS: ALBUMIN 3.5 g/dL (3.5-5.0); ALBUMIN/GLOBULIN RATIO 1.1 (0.8-2.0); ANION GAP 14.8 mmol/L (8-16); CALCIUM 8.5 mg/dL (8.4-10.2); CREATININE, SERUM 0.61 mg/dL (0.72-1.25); POTASSIUM 3.8 mmol/L (3.5-5.1)
[2022-02-25] MEDS: GLIMEPIRIDE 2 MG TAB PO SCH (10:17)
[2022-02-25] MEDS: AMLODIPINE BESYLATE 5 MG TAB PO SCH (10:17)
== END 2022-02-25 12:05 | disposition home or self-care (01) ==
LOC: ER 16:28 → ERHOLD 18:26 → MED/SURG3 21:00
PROVIDERS: ADMIT Internal Medicine; ATTEND Internal Medicine
DX: E11.65 Type 2 diabetes mellitus with hyperglycemia (principal); G93.41 Metabolic encephalopathy; R17 Unspecified jaundice; J84.10 Pulmonary fibrosis, unspecified; J96.11 Chronic respiratory failure with hypoxia; I27.81 Cor pulmonale (chronic); I11.0 Hypertensive heart disease with heart failure; I50.9 Heart failure, unspecified; J44.9 Chronic obstructive pulmonary disease, unspecified; I25.10 Atherosclerotic heart disease of native coronary artery without angina pectoris; E78.5 Hyperlipidemia, unspecified; Z20.822 Contact with and (suspected) exposure to COVID-19; Z99.81 Dependence on supplemental oxygen; Z79.899 Other long term (current) drug therapy; Z79.84 Long term (current) use of oral hypoglycemic drugs
CPT/HCPCS: 36415; 70450; 70496; 70498; 70551; 71045; 74177; 74181; 80053; 80061; 81001; 82140; 82550; 82553; 82948; 83036; 83735; 83880; 84484; 85025; 85610; 85730; 87086; 93005; 94760; 94799; 99285; G0378; J7030; J7040; J7050; Q9967